=== PATIENT | female | born 1960 ===

== ENCOUNTER 2023-10-05 06:44 | Day surgery (SDC) | payer OTHER, SELFPAY ==
[2023-09-16 14:04] VITALS: BMI 32.0
[2023-09-16 14:29] LABS: Hematocrit 43.5 % (37.0-47.0); Hemoglobin 14.6 g/dL (12.0-16.0); Mean Corp Hgb Conc. 33.6 g/dL (33.0-37.0); Mean Corpuscular Volume 89.5 fL (81.0-99.0); Mean Platelet Volume 10.1 fL (7.4-10.4); Platelet Count 285 10^3/uL (130-400); Red Blood Cell Count 4.86 10^6/uL (4.20-5.40); Red Cell Dist. Width 13.5 % (11.5-14.5); White Blood Cell Count 8.3 10^3/uL (4.8-10.8)
[2023-09-16 15:18] LABS: ALT (SGPT) 17 U/L (0-35); AST (SGOT) 20 U/L (14-36); Albumin 4.4 g/dl (3.5-5.0); Alkaline Phosphatase 82 U/L (38-126); Blood Urea Nitrogen 21 mg/dl (7-17); Calcium 9.7 mg/dl (8.4-10.2); Carbon Dioxide 27 mmol/L (22-30); Chloride 104 mmol/L (98-107); Estimated Creatinine Clearance 69 ml/min; Glucose 100 mg/dl (70-99); Potassium 4.6 mmol/L (3.5-5.1); Sodium 138 mmol/L (135-145); Total Bilirubin 0.6 mg/dl (0.2-1.3); Total Protein 6.8 g/dl (6.3-8.2); eGFR > 60.00
[2023-09-17 09:45] LABS: Glycohemoglobin (HgbA1c) 5.6 % (4.0-5.6)
[2023-09-30 12:11] VITALS: BMI 32.0
[2023-10-05] VITALS (15 sets, daily range): BP systolic 101–158; BP diastolic 64–81; BMI 32.0
[2023-10-05] MEDS: CELEBREX 200 MG PO (08:02)
[2023-10-05] MEDS: TYLENOL 1000 MG PO (08:02)
[2023-10-05] MEDS: NORMOSOL-R 1000 IV (08:03)
--- NOTE | 2023-10-05 12:53 | SUR.PHASEI ---
1245 - sleeping - attempt room air again. patient very comfortable.
--- NOTE | 2023-10-05 13:33 | SUR.PHASEI ---
O2 off, vss, awake and alert, using IS and with sleep - lowest sat on room air now 90%. discharge to [facility]
[2023-10-05] MEDS: ANCEF 5 IV (13:56)
== END 2023-10-05 14:35 | disposition home or self-care (01) ==
LOC: SDS 06:44
PROVIDERS: ATTENDING PHYSICIAN Orthopaedic Surgery Hand Surgery; FAMILY PHYSICIAN Family Medicine
DX: M19.011 Primary osteoarthritis, right shoulder (principal)
CPT/HCPCS: 23472; 36415; 73020; 80053; 83036; 85027; 87070; C1713; C1776